=== PATIENT | female | born 1980 ===

== ENCOUNTER 2017-06-04 12:30 | Inpatient (IN) ==
[2017-06-04 13:06] LABS: Apearance,Urine Slightly Hazy (Clear); Bilirubin,Urine Negative (Negative); Blood, Urine Small mg/dL (Negative); Glucose,Urine (UA) Negative (Negative); Ketones,Urine Negative (Negative); Mucus,Urine Occasional /LPF (Occasional); Nitrite,Urine Negative (Negative); Protein,Urine >=500 MG/DL; RBC,Urine 2 /HPF (0-4); Squamous Epithelial Cell,Urine Occasional /HPF (0-10); Urine Color Yellow (Yellow); Urine Specific Gravity 1.015 (1.001-1.035); Urine Urobilinogen < 2.0 EU/DL (0.2-1.0); WBC,Urine 11 /HPF (0-6)
[2017-06-04 13:13] LABS: Basophils % 0.4 % (0.0-0.8); Eosinophils % 0.5 % (0.00-10.9); Hematocrit 32.1 VOL% (35.7-47.0); Hemoglobin 10.9 GM/DL (12.0-16.0); Immature Granulocytes % 0.5 %; Immature Granulocytes Absolute 0.04 #; Lymphocytes # 2.2 10*3/uL (1.4-4.0); Lymphocytes % 26.1 % (21.3-54.2); Mean Corpuscular Hemoglobin 30 PG (27-34); Mean Corpuscular Volume 88.4 FL (87-102); Mean Platelet Volume 10.2 FL (9.6-12.0); Monocytes # 0.4 10*3/uL (0.11-0.8); Monocytes % 5.3 % (1.7-12.7); Neutrophils # 5.6 10*3/uL (1.4-7.4); Neutrophils % 67.2 % (38.7-73.9); Platelet Count 169 T/CUMM (130-400); Red Blood Count 3.63 MC/CUMM (3.8-5.5); Red Cell Distribution Width 13.2 % (9.3-17.3); White Blood Count 8.3 T/CUMM (4-12)
[2017-06-04 13:23] LABS: INR 0.9; PT Patient Result 9.2 SECS; Partial Thromboplastin Time 27.7 SECS (0-40)
[2017-06-04 13:44] LABS: Alanine Aminotransferase 20 U/L (13-56); Albumin 2.3 G/DL (3.4-5.0); Alkaline Phosphatase 127 U/L (45-117); Aspartate Amino Transferase 26 U/L (0-37); Bilirubin,Total < 0.39 MG/DL (0.2-1.0); Blood Urea Nitrogen 12 MG/DL (7-18); Calcium 8.5 MG/DL (8.5-10.1); Glucose 75 MG/DL (74-106); Osmolality,Calculated 275.5 MOS/KG (273-304); Potassium 4.1 MMOL/L (3.5-5.1); Sodium 139 MMOL/L (136-145); Total Protein 6.4 G/DL (6.4-8.3); Uric Acid 6.8 MG/DL (2.6-6.0)
[2017-06-04] MEDS ORDERED: DEXTROSE 50% 25 GM/50 ML VIAL IV PRN (14:47)
[2017-06-04] MEDS ORDERED: GLUCAGON 1 MG VIAL IM PRN (14:47)
[2017-06-05] MEDS ORDERED: ONDANSETRON 4 MG/2 ML VIAL IV PRN ×3 (06:07→13:38)
[2017-06-05] MEDS ORDERED: BUPIVACAINE SPINAL 0.75% 2 ML AMP SPINAL ONE (07:03)
[2017-06-05] MEDS ORDERED: CITRIC ACID/SODIUM CITRATE 30 ML UDCUP PO ONE (07:05)
[2017-06-05] MEDS ORDERED: ceFAZolin 2,000 MG in PREMIX 1 EACH IV ONE (07:05)
[2017-06-05] MEDS ORDERED: FAMOTIDINE 20 MG/2 ML VIAL IV ONE (07:05)
[2017-06-05] MEDS ORDERED: OXYTOCIN/LR 30 UNIT/1,000 ML BAG IV ONE (07:07)
[2017-06-05] MEDS ORDERED: OXYTOCIN 10 UNIT/ML VIAL IM ONE (07:07)
[2017-06-05] MEDS ORDERED: LACTATED RINGERS 1,000 ML IV ONE (07:15)
[2017-06-05] MEDS ORDERED: LACTATED RINGERS 1,000 ML IV SCH ×2 (07:30→13:38)
[2017-06-05 09:18] LABS: Apearance,Urine CLEAR (Clear); Bacteria,Urine Occasional /HPF (Few); Bilirubin,Urine Negative (Negative); Blood, Urine Small mg/dL (Negative); Glucose,Urine (UA) Negative (Negative); Hyaline Casts,Urine 4 /LPF (0-3); Ketones,Urine 5 mg/dL (Negative); Mucus,Urine Occasional /LPF (Occasional); Nitrite,Urine Negative (Negative); Protein,Urine >=500 MG/DL; RBC,Urine 1 /HPF (0-4); Squamous Epithelial Cell,Urine Occasional /HPF (0-10); Urine Color Yellow (Yellow); Urine Specific Gravity 1.012 (1.001-1.035); Urine Urobilinogen < 2.0 EU/DL (0.2-1.0); WBC,Urine 2 /HPF (0-6)
[2017-06-05 11:14] LABS: Cord Venous Blood HCO3 22.8 MMOL/L; Cord Venous Blood PCO2 44.5 MMHG; Cord Venous Blood PO2 38.6
[2017-06-05 11:18] LABS: Cord Arterial Blood HCO3 21.5 MMOL/L
[2017-06-05] MEDS ORDERED: fentaNYL 100 MCG/2 ML VIAL ONE (11:25)
[2017-06-05] MEDS ORDERED: MORPHINE 10 MG/10 ML VIAL ONE (11:25)
[2017-06-05] MEDS ORDERED: GLUCAGON 1 MG VIAL IM PRN ×2 (13:34→13:38)
[2017-06-05] MEDS ORDERED: DEXTROSE 50% 25 GM/50 ML VIAL IV PRN ×2 (13:34→13:38)
[2017-06-05] MEDS ORDERED: OXYTOCIN/LR 20 UNIT/1,000 ML BAG IV ONE (13:38)
[2017-06-05] MEDS ORDERED: IBUPROFEN 800 MG TABLET PO PRN (13:38)
[2017-06-05] MEDS ORDERED: ACETAMINOPHEN 325 MG TABLET PO PRN (13:38)
[2017-06-05] MEDS ORDERED: RHO(D) IMMUNE GLOBULIN 300 MCG SYRINGE IM ONE (13:38)
[2017-06-05] MEDS ORDERED: SIMETHICONE CHEW 80 MG TABLET PO PRN (13:38)
[2017-06-05] MEDS ORDERED: MAGNESIUM HYDROXIDE SUSP 30 ML UDCUP PO PRN (13:38)
[2017-06-05] MEDS ORDERED: ONDANSETRON 4 MG/2 ML VIAL ONE (14:54)
[2017-06-05] MEDS ORDERED: ceFAZolin 1,000 MG in SYRINGE 1 EACH IV SCH (16:00)
[2017-06-05] MEDS: ceFAZolin 1,000 MG in SYRINGE 1 EACH IV SCH (18:06)
[2017-06-05] MEDS: INSULIN REGULAR 100 UNIT/ML SUBCUT SCH (18:14)
[2017-06-05 19:49] LABS: Basophils % 0.3 % (0.0-0.8); Hemoglobin 11.4 GM/DL (12.0-16.0); Immature Granulocytes % 0.6 %; Immature Granulocytes Absolute 0.08 #; Lymphocytes % 7.6 % (21.3-54.2); Mean Corpuscular HGB Conc 34.5 GM/DL (32-36); Mean Corpuscular Hemoglobin 31 PG (27-34); Mean Corpuscular Volume 88.2 FL (87-102); Mean Platelet Volume 10.5 FL (9.6-12.0); Monocytes # 0.5 10*3/uL (0.11-0.8); Monocytes % 3.5 % (1.7-12.7); Platelet Count 162 T/CUMM (130-400); Red Blood Count 3.74 MC/CUMM (3.8-5.5); Red Cell Distribution Width 13.1 % (9.3-17.3); White Blood Count 13.6 T/CUMM (4-12)
[2017-06-06] MEDS: ceFAZolin 1,000 MG in SYRINGE 1 EACH IV SCH (01:58)
[2017-06-06 05:10] LABS: Basophils % 0.2 % (0.0-0.8); Eosinophils % 0.2 % (0.00-10.9); Hematocrit 28.9 VOL% (35.7-47.0); Hemoglobin 10.1 GM/DL (12.0-16.0); Immature Granulocytes % 0.6 %; Immature Granulocytes Absolute 0.07 #; Lymphocytes # 2.1 10*3/uL (1.4-4.0); Lymphocytes % 17.5 % (21.3-54.2); Mean Corpuscular HGB Conc 34.9 GM/DL (32-36); Mean Corpuscular Hemoglobin 30 PG (27-34); Mean Corpuscular Volume 86.8 FL (87-102); Mean Platelet Volume 10.8 FL (9.6-12.0); Monocytes # 0.7 10*3/uL (0.11-0.8); Neutrophils # 9.1 10*3/uL (1.4-7.4); Neutrophils % 75.5 % (38.7-73.9); Platelet Count 157 T/CUMM (130-400); Red Blood Count 3.33 MC/CUMM (3.8-5.5); Red Cell Distribution Width 13.1 % (9.3-17.3); White Blood Count 12.1 T/CUMM (4-12)
[2017-06-06] MEDS: DOCUSATE SODIUM 100 MG CAPSULE PO SCH ×3 (06:45→21:12)
[2017-06-06] MEDS: INSULIN REGULAR 100 UNIT/ML SUBCUT SCH ×5 (06:45→21:12)
[2017-06-06] MEDS: MULTIVITAMIN (PRENATAL) TABLET PO SCH (09:36)
[2017-06-07 04:52] VITALS: BP 149/87
[2017-06-07] MEDS: INSULIN REGULAR 100 UNIT/ML SUBCUT SCH (08:30)
[2017-06-07] MEDS: MULTIVITAMIN (PRENATAL) TABLET PO SCH (09:13)
[2017-06-07] MEDS: DOCUSATE SODIUM 100 MG CAPSULE PO SCH (09:13)
== END 2017-06-07 13:00 | disposition home or self-care (01) | DRG 765 ==
LOC: N.LDOUT 12:30 → N.LD 12:32 → N.OB 06-05 13:40
PROVIDERS: ADMIT Obstetrics & Gynecology; ATTEND Obstetrics & Gynecology
PROC: LDCSECT (ICD-10-PCS; 2017-06-05 09:00)